=== PATIENT | female | born 1955 | race Two or more races ===

== ENCOUNTER 2022-01-02 15:08 | Emergency (ER) | payer OTHER ==
[~2022-01-02] VITALS: Ht 167.6 cm; Wt 72.1 kg
== END 2022-01-02 17:59 | disposition home or self-care (01) ==
LOC: ER 15:08
DX: U07.1 COVID-19 (principal); A49.3 Mycoplasma infection, unspecified site

== ENCOUNTER 2022-12-27 18:51 | Emergency (ER) | payer OTHER ==
[~2022-12-27] VITALS: Ht 167.6 cm; Wt 72.6 kg
== END 2022-12-27 21:18 | disposition home or self-care (01) ==
LOC: ER
DX: J06.9 Acute upper respiratory infection, unspecified (principal); Z20.822 Contact with and (suspected) exposure to COVID-19

== ENCOUNTER 2023-04-06 18:01 | Emergency (ER) | payer OTHER ==
[~2023-04-06] VITALS: Ht 167.6 cm; Wt 69.9 kg
[2023-04-06] MEDS ORDERED: LYRICA100 MG PO (18:23)
[2023-04-06 21:00] LABS: HEMATOCRIT 41.6 % (36.0-45.00); HEMOGLOBIN 13.8 g/dL (12.0-15.00); MEAN CELL VOLUME 84.6 fL (80.00-100.00); MEAN CORPUSCULAR HGB CONC 33.1 g/dl (32.0-36.0); PLATELET COUNT 274 K/uL (150-450); RED BLOOD COUNT 4.92 M/uL (4.00-6.00); RED CELL DISTRIBUTION WIDTH 13.5 % (11.5-14.5)
== END 2023-04-06 22:15 | disposition home or self-care (01) ==
LOC: ER 18:01
PROVIDERS: General Practice
DX: J06.9 Acute upper respiratory infection, unspecified (principal); Z20.822 Contact with and (suspected) exposure to COVID-19

== ENCOUNTER 2024-10-18 18:34 | Emergency (ER) | payer OTHER ==
[~2024-10-18] VITALS: Ht 165.1 cm; Wt 72.1 kg
[~2024-10-18 18:34] MED LIST: LYRICA100 MG PO
[2024-10-18] MEDS ORDERED: FAMOtidine 10 MG/ML (4ML VIAL) IV PUSH ONE (19:15)
[2024-10-18] MEDS ORDERED: ONDANSETRON HCL 2 MG/ML VIAL IV ONE (19:15)
[2024-10-18] MEDS ORDERED: HYOSCYAMINE SULFATE 0.125 MG TAB.SUBL SL ONE (19:15)
[2024-10-18 20:23] LABS: BASO % 0.1 % (0.1-1.2); EOS # 0.02 (0.04-0.54); EOS % 0.2 % (0.7-7.0); HEMOGLOBIN 14.1 g/dL (11.2-15.7); LYMPH # 0.99 (1.18-3.74); LYMPH % 10.2 % (19.3-53.1); MEAN CORPUSCULAR HEMOGLOBIN 27.6 pg (25.6-32.2); MONO # 0.49 (0.24-0.82); MONO % 5.1 % (4.7-12.5); NEUT # 8.14 (1.56-6.13); NEUT % 84.2 % (34.0-71.1); PLATELET COUNT 271 K/uL (163-369); RED CELL DISTRIBUTION WIDTH 12.5 % (11.6-14.4)
[2024-10-18] MEDS ORDERED: PROTONIX40 MG PO (21:00)
[2024-10-18] MEDS ORDERED: CIPRO500 MG PO (21:00)
[2024-10-18] MEDS ORDERED: METRONIDAZOLE500 MG PO (21:00)
[2024-10-18] MEDS ORDERED: PROBIOTIC1 EAC2 PO (21:00)
== END 2024-10-18 22:28 | disposition home or self-care (01) ==
LOC: ER 18:37
PROVIDERS: General Practice
DX: A05.9 Bacterial foodborne intoxication, unspecified (principal); R10.9 Unspecified abdominal pain
CPT/HCPCS: 36415; 96365; 99282; J2405; J3490